=== PATIENT | male | born 1995 | race African-American/Black ===

== ENCOUNTER 2019-10-27 23:45 | Emergency (ER) | payer BC, MEDICAID, OTHER ==
--- NOTE | 2019-10-27 23:56 | ER Document Report ---
ED Medical Screen (RME) - General Stated Complaint: SHORTNESS OF BREATH Primary Care Provider: FATOU TRUJILLO MD [Primary Care Provider] - Follow up as needed Notes: Patient is a 24-year-old -[place] male with a past medical history significant for a "bone cancer" who just had surgery on his right femur and knee about 6 weeks ago who presents with a chief complaint of sudden onset chest pain and shortness of breath that occurred at home prior to arrival. The patient reports he had a sudden sensation, across his chest that was painful, associated with a strange sensation and difficulty breathing. He states that he laid down and the episode did eventually pass but it was concerning so his mother brought him for evaluation. At this time he denies any pain. With the exception of chronic pain in the right lower extremity. He does admit that he has had a mild new cough recently. No hemoptysis. I have treated and performed a rapid initial assessment of this patient. A comprehensive ED assessment and evaluation of the patient, analysis of test re sults and completion of medical decision making process will be conducted by additional ED providers. PHYSICAL EXAMINATION: GENERAL: Well-appearing, well-nourished and in no acute distress. A&Ox4. Answers questions appropriately. Doctor's Discharge - Discharge Referrals: FATOU TRUJILLO MD [Primary Care Provider] - Follow up as needed
--- NOTE | 2019-10-28 00:39 | ER Document Report ---
ED Respiratory Problem - General Chief Complaint: Shortness Of Breath Stated Complaint: SHORTNESS OF BREATH Time Seen by Provider: 10/28/19 00:10 Primary Care Provider: FATOU TRUJILLO MD [EMERITUS] - Follow up as needed Notes: CHIEF COMPLAINT: Chest pain and shortness of breath this evening HPI: 24-year-old male with a history of bone cancer of the right leg who had recent right knee replacement and is currently on chemotherapy for bone cancer at [facility] presenting for an episode of chest pain with shortness of breath this evening. Patient states he was walking in his kitchen when he felt his heart rate increased dramatically, states he had some dizziness and shortness of breath. Symptoms did slowly go away. Mother states patient did appear pale at the time. Patient states that they did the knee replacement approximately 6 weeks ago. Patient states that he has had cough and cold symptoms with low- grade fever to 99 degrees over the last 5 to 6 days. Patient states that he did receive doxorubicin and cisplatin 3 weeks ago and is due for methotrexate next week. ROS: See HPI - all other systems were reviewed and are otherwise negative Constitutional: no fever Eyes: no drainage, no blurred vision ENT: no runny nose, no sore throat Cardiovascular: + chest pain Resp: + SOB, + cough GI: no vomiting, no diarrhea, no abdominal pain : no dysuria Integumentary: no rash Allergy: no hives Musculoskeletal: no extremity pain or swelling Neurological: no numbness/tingling, no weakness MEDICATIONS: I agree with the patient medications as charted by the RN. ALLERGIES: I agree with the allergies as charted by the RN. PAST MEDICAL HISTORY/PAST SURGICAL HISTORY: Reviewed and agree as charted by RN. SOCIAL HISTORY: Reviewed and agree as charted by RN. FAMILY HISTORY: No significant familial comorbid conditions directly related to patient complaint EXAM: Reviewed vital signs as charted by RN. CONSTITUTIONAL: Alert and oriented and responds appropriately to questions. Well-appearing; well-nourished HEAD: Normocephalic; atraumatic EYES: PERRL; Conjunctivae clear, sclerae non-icteric ENT: normal nose; no rhinorrhea; moist mucous membranes; pharynx without lesions noted, no uvula edema or deviation, no tonsillar hypertrophy, phonation normal NECK: Supple without meningismus; non-tender; no cervical lymphadenopathy, no masses CARD: mild tachycardia; no murmurs, no clicks, no rubs, no gallops; symmetric distal pulses RESP: Normal chest excursion without splinting or tachypnea; breath sounds clear and equal bilaterally; no wheezes, no rhonchi, no rales, pulse oximetry 98% on room air not hypoxic, double port is noted in the right chest wall ABD/GI: Normal bowel sounds; non-distended; soft, non-tender, no rebound, no guarding; no palpable organomegaly or masses. BACK: The back appears normal and is non-tender to palpation, there is no CVA tenderness EXT: The surgical wound overlying the right knee is intact without significant soft tissue swelling or erythema SKIN: Normal color for age and race; warm; dry; good turgor; no acute lesions noted NEURO: Moves all extremities equally; Motor and sensory function intact PSYCH: The patient's mood and manner are appropriate. Grooming and personal hygiene are appropriate. MDM: TRAVEL OUTSIDE OF THE [place] IN LAST 30 DAYS: No - Related Data Home Medications: oxycodone prn Past Medical History - Social History Smoking Status: Never Smoker Family History: Malignancy, Thyroid Disfunction Patient has suicidal ideation: No Patient has homicidal ideation: No Physical Exam - Vital signs Vitals: Temp Pulse Resp BP Pulse Ox 98.2 F 119 H 18 119/79 99 10/27/19 23:49 10/27/19 23:49 10/27/19 23:49 10/27/19 23:49 10/27/19 23:49 Course - Re-evaluation Re-evalutation: 10/28/19 01:14 Notified the patient's hemoglobin and hematocrit was 7.8 and 22. Discussed with the patient who states is normal hemoglobin is around 8. 10/28/19 02:[address] negative for acute findings. Patient's troponin was very mildly elevated at 0.038, awaiting TSH then will discuss with patient's hematology team at [facility] 10/28/19 03:04 call out to [facility] Heme/[facility]c , awaiting callback 10/28/19 03:[address] Fadi Garcia Onc MD. I discussed the patient's presentation. Patient's imaging studies, patient's history, patient's lab work results including the TSH level and the mildly elevated troponin. I did request from them a decision on whether they would need this patient transferred to them as he is to come to them on Monday anyway for next methotrexate chemotherapy. He stated to me that he would be comfortable with us checking a second troponin if that is our protocol for an elevated troponin and a 24-year-old here. Patient currently has no chest pain no shortness of breath. I believe he likely had a run of SVT based on his description of symptoms and findings. Will check a second troponin per the recommendation of his marine steam fitter to follow-up on Monday with them. 10/28/19 04:31 Second troponin is 0.041. The cutoff for normal is 0.034. Patient is sleeping in the room at this time, he is in a normal sinus rhythm on the monitor. He has no complaints of chest discomfort shortness of breath or lightheadedness since the original episode several hours ago. Patient CT was normal. Patient's other lab work is at baseline. EKG was normal sinus rhythm without ectopy. Patient is undergoing chemotherapy but last chemotherapy was 2 to 3 weeks ago, unlikely that this is causing his symptomology and results tonight. I spoke with the patient and his mother at length about her symptoms and his results. They are in agreement that this is unlikely a heart attack and they do also believe that patient may have had SVT. They do not wish to be transferred at this time although I did offer it. Mother states that she will call the hematology people this morning and they will likely go up to [facility] today. They are aware that they should return for any recurrent symptoms. discussed at length with Dr. Vega, Attending. 10/28/19 04:45 - Vital Signs Vital signs: Temp Pulse Resp BP Pulse Ox 98.4 F 119 H 23 H 110/58 L 97 10/28/19 02:57 10/27/19 23:49 10/28/19 04:01 10/28/19 04:01 10/28/19 04:00 - Laboratory Result Diagrams: 10/28/19 00:30 10/28/19 00:30 Laboratory results interpreted by me: 10/28/19 10/28/19 10/28/19 00:30 00:30 00:30 RBC 2.43 L Hgb 7.8 L Hct 22.3 L Jess[place] % (Auto) 19.9 H Absolute Monos (auto) 1.5 H Albumin 3.4 L TSH 0.36 L Discharge - Discharge Clinical Impression: Hyperthyroidism, Elevated troponin Chest pain Qualifiers: Chest pain type: chest pain on breathing Qualified Code(s): R07.1 - Chest pain on breathing Condition: Stable Disposition: HOME, SELF-CARE Additional Instructions: Follow-up with your marine steam fitter today regarding whether they wish you to come early for further evaluation of your symptoms tonight. You will need to be further evaluated for hyperthyroidism as well as possibility of SVT. If you have worsening symptoms or discomfort please return to the emergency department as discussed. Referrals: FATOU TRUJILLO MD [EMERITUS] - Follow up as needed
[2019-10-28 00:57] LABS: ABSOLUTE LYMPHOCYTES (AUTO) 1.7 10^3/uL (0.5-4.7); ABSOLUTE MONOCYTES (AUTO) 1.5 10^3/uL (0.1-1.4); ABSOLUTE NEUT (AUTO) 4.2 10^3/uL (1.7-8.2); BASOPHILS % (AUTO) 0.3 % (0-2); HEMATOCRIT 22.3 % (37.9-51.0); LYMPHOCYTES % (AUTO) 23.4 % (13-45); MEAN CORPUSCULAR HEMOGLOBIN 32.1 pg (27.0-33.4); MEAN CORPUSCULAR HGB CONC 35.1 g/dL (32.0-36.0); MEAN CORPUSCULAR VOLUME 92 fl (80-97); MONOCYTES % (AUTO) 19.9 % (3-13); PLATELET COUNT 179 10^3/uL (150-450); RED BLOOD COUNT 2.43 10^6/uL (4.35-5.55); RED CELL DISTRIBUTION WIDTH 13.1 % (11.5-14.0); SEGMENTED NEUTROPHILS % (AUTO) 56.4 % (42-78); TOTAL CELLS COUNTED % (AUTO) 100 %; WHITE BLOOD COUNT 7.4 10^3/uL (4.0-10.5)
[2019-10-28 00:59] LABS: INTERNATIONAL RATION (INR) 1.05; PARTIAL THROMBOPLASTIN TIME 31.6 SEC (23.5-35.8); PROTHROMBIN TIME 13.7 SEC (11.4-15.4)
[2019-10-28 01:00] LABS: HEMOGLOBIN 7.8 g/dL (13.5-17.0)
[2019-10-28 01:07] LABS: A TYPE INFLUENZA AG NEGATIVE (NEGATIVE); B INFLUENZA AG NEGATIVE (NEGATIVE)
[2019-10-28 01:19] LABS: ALBUMIN 3.4 g/dL (3.5-5.0); ALKALINE PHOSPHATASE 107 U/L (38-126); ANION GAP 10 (5-19); ASPARTATE AMINO TRANSFERASE 17 U/L (17-59); BILIRUBIN,DIRECT 0.2 mg/dL (0.0-0.4); BILIRUBIN,TOTAL 0.2 mg/dL (0.2-1.3); BLOOD UREA NITROGEN 16 mg/dL (7-20); CALCIUM 8.6 mg/dL (8.4-10.2); CARBON DIOXIDE 25 mmol/L (22-30); CHLORIDE 102 mmol/L (98-107); GLUCOSE 94 mg/dL (75-110); POTASSIUM 3.7 mmol/L (3.6-5.0); TOTAL PROTEIN 6.4 g/dL (6.3-8.2)
--- NOTE | 2019-10-28 01:32 | RADIOLOGY REPORT (SQ) ---
EXAM DESCRIPTION: X-RAY CHEST- One View CLINICAL HISTORY: Evaluate chest port COMPARISON: None available TECHNIQUE: Single view of the chest. FINDINGS: There are overlying EKG leads. Right chest wall port distal tip terminates in the expected location of the cavoatrial junction. There are no discrete air space infiltrates, pneumothoraces or pleural effusions. The pulmonary vascularity is normal. The cardiomediastinal silhouette is normal in size. No suspicious lytic or blastic osseous lesions are identified. IMPRESSION: Right chest wall port terminates in the expected location of the cavoatrial junction.
--- NOTE | 2019-10-28 02:16 | RADIOLOGY REPORT (SQ) ---
EXAM: CT Chest With Intravenous Contrast EXAM DATE/TIME: 10/28/2019 at 1:48 AM CLINICAL HISTORY: The patient is 24 years old and is Male; cp/sob, h/o CA and recent surg TECHNIQUE: Axial computed tomography images of the chest with intravenous contrast. Sagittal and coronal reformatted images were created and reviewed. This CT exam was performed using one or more of the following dose reduction techniques: automated exposure control, adjustment of the mA and/or kV according to patient size, and/or use of iterative reconstruction technique. COMPARISON: No relevant prior studies available. FINDINGS: LUNGS: The lungs are clear. No consolidation. No pulmonary edema. No pulmonary nodules. PLEURAL SPACE: No effusion. No pneumothorax. HEART: No cardiomegaly. No pericardial effusion. BONES/JOINTS: No acute fracture. No dislocation. SOFT TISSUES: No abnormalities visualized in the superficial soft tissues. VASCULATURE: The exam was not optimized for evaluation of the pulmonary arteries. There is no evidence of embolus in the main pulmonary arteries. The peripheral pulmonary arteries are not well visualized on this study. There is no aortic aneurysm or dissection. LYMPH NODES: No significant lymph node enlargement. TUBES, LINES AND DEVICES: Right chest port in place, terminating at the cavoatrial junction. IMPRESSION: No acute findings in the chest.
[2019-10-28 02:47] LABS: APPEARANCE,URINE CLEAR; BILIRUBIN,URINE NEGATIVE (NEGATIVE); COLOR,URINE STRAW; GLUCOSE, URINE NEGATIVE (NEGATIVE); KETONES,URINE NEGATIVE (NEGATIVE); LEUKOCYTE ESTERASE,URINE NEGATIVE (NEGATIVE); NITRITE,URINE NEGATIVE (NEGATIVE); PROTEIN,URINE NEGATIVE (NEGATIVE); URINE SPECIFIC GRAVITY 1.013; UROBILINOGEN,URINE NEGATIVE mg/dL (<2.0)
[2019-10-28 05:11] VITALS: BP 105/64
--- NOTE | 2019-10-28 06:11 | EKG REPORT ---
SEVERITY:- NORMAL ECG - SINUS RHYTHM : Confirmed by: Giovanni Montero MD 28-Oct-2019 06:11:32
== END 2019-10-28 05:12 | disposition home or self-care (01) ==
LOC: ER 23:45
DX: E05.90 Thyrotoxicosis, unspecified without thyrotoxic crisis or storm (principal); R07.1 Chest pain on breathing; R79.89 Other specified abnormal findings of blood chemistry; R06.02 Shortness of breath; R42 Dizziness and giddiness; R50.9 Fever, unspecified; Z85.830 Personal history of malignant neoplasm of bone; Z96.651 Presence of right artificial knee joint
CPT/HCPCS: 93005; 36415; 87040; 84443; 85025; 85610; 85730; 80053; 81001; 84484; 87804; 71045; 71260; 93010; J1642